=== PATIENT | female | born 1995 ===

== ENCOUNTER 2019-07-22 10:03 | Observation (INO) | payer OTHER ==
[2019-07-22] MEDS ORDERED: Ibuprofen 800 MG TAB ONE (10:27)
[2019-07-22] MEDS ORDERED: Acetaminophen 500 MG TAB ONE (10:27)
--- NOTE | 2019-07-22 11:02 | RAD ---
RADIOGRAPH CHEST 2 VIEWS: DATE: 07/22/2019 HISTORY: 24-year-old female with chest pain and cough FINDINGS: The lungs are clear. The cardiomediastinal silhouette and hilar shadows appear normal. There is no pl eural effusion or pneumothorax. No osseous abnormality is identified. IMPRESSION: Normal
[2019-07-22 12:35] LABS: Hemoglobin 14.5 g/dL (12.0-16.0); Mean Corpuscular HGB CONC 35.2 g/dL (32.0-36.0); Mean Corpuscular Hemoglobin 31.4 pg (27.0-31.0); Mean Corpuscular Volume 89.2 fL (78.0-98.0); Mean Platelet Volume 8.8 fL (7.4-10.4); Platelet Count 168 thou/uL (130-400); RBC Distribution Width 11.4 % (11.5-14.5); Red Blood Cell (RBC) Count 4.63 mill/uL (4.20-5.40); White Blood Cell (WBC) Count 16.8 thou/uL (4.8-10.8)
[2019-07-22 12:35] LABS: Bilirubin Negative (Negative); Blood, Urine Negative (Negative); Clarity Clear (Clear); Glucose, Urine (Dipstick) 50 mg/dL (Negative); Leukocyte Negative Leu/uL (Negative); Nitrite Negative (Negative); Protein, Urine (Dipstick) 20 mg/dL (Neg-Trace)
[2019-07-22 12:37] LABS: Pregnancy Test - Urine (BHCG) Negative (Negative); Pregu Control Background? CLEAR/WHITE (CLR/WHITE); Pregu Control Bar Appear? YES (CONTROL BAR); Specific Gravity 1.034 (1.002-1.036)
[2019-07-22 12:54] LABS: ALT (SGPT) 8 U/L (8-55); AST (SGOT) 11 U/L (5-34); Albumin 4.4 g/dL (3.5-5.0); Alkaline Phosphatase 73 U/L (40-110); Anion Gap 13 mmol/L (10-20); BUN (Urea Nitrogen) 16 mg/dL (7.0-18.7); Band 17 % (5-11); Bilirubin, Total 1.6 mg/dL (0.2-1.2); Calc. Creatinine Clearance 0 mL/min (70-130); Calcium 9.4 mg/dL (7.8-10.44); Carbon Dioxide 22 mmol/L (22-29); Chloride 103 mmol/L (98-107); Estimated GFR-MDRD 77; Globulin 2.6 g/dL (2.4-3.5); Glucose 155 mg/dL (70-105); Lymphocytes 1 % (21-51); MDiff Complete? YES; Metamyelocyte 1 % (0-0); Neutrophil 81 % (42-75); Platelet Morphology Comment Appears Adequate; Potassium 3.8 mmol/L (3.5-5.1); RBC Morphology Normal; Sodium 134 mmol/L (136-145)
[2019-07-22] MEDS ORDERED: Piperacillin/Tazobactam 3.375 GM VIAL ONE (13:10)
--- NOTE | 2019-07-22 14:11 | ULT ---
GALLBLADDER ULTRASOUND: HISTORY: Right upper quadrant abdominal pain FINDINGS: The liver demonstrates homogeneous echotexture without focal mass or intrahepatic biliary ductal dila tation. No gallstones, gallbladder wall thickening or pericholecystic fluid are seen. The pancreas is normal. There is trace right hydronephrosis. The common duct [id number] in diameter. No free fluid is seen in the Lewis's pouch. IMPRESSION: Trace right hydronephrosis, otherwise unremarkable exam
--- NOTE | 2019-07-22 15:52 | CT ---
CT ABDOMEN AND PELVIS WITHOUT CONTRAST: COMPARISON: None. HISTORY: Right flank pain. TECHNIQUE: Multiple contiguous axial images were obtained in a CT of the abdomen and pelvis without contrast. S agittal and coronal reformats were performed. FINDINGS: The liver, gallbladder, kidneys, adrenal glands, spleen, and pancreas are unremarkable, although eval uation is limited without IV contrast. No free air, free fluid, or stranding changes are seen in the abdomen or pelvis. The large and small bowel are unremarkable. The appendix is unremarkable. The reproductive organs are unremarkable. No abdominal or pelvic lymphadenopathy are seen. The visualized inferior thorax and abdominal wall s oft tissues are unremarkable. The bones are unremarkable. IMPRESSION: No evidence of acute intraabdominal/pelvic abnormality. POS: TPC
[2019-07-22] MEDS ORDERED: Ondansetron PF 4 MG/2 ML Vial IVP PRN ×2 (17:00→18:29)
[2019-07-22] MEDS ORDERED: Acetaminophen 325 MG TAB PO PRN (17:00)
[2019-07-22] MEDS ORDERED: Ondansetron ODT 4 MG TAB SL PRN (17:00)
[2019-07-22 17:17] VITALS: BMI 25.9
[2019-07-22] MEDS ORDERED: HYDROcodone/Acetaminophen 5/325 mg Tablet PO PRN (18:08)
[2019-07-22] MEDS ORDERED: Acetaminophen 500 MG TAB PO PRN (18:29)
[2019-07-22] MEDS ORDERED: Ondansetron ODT 4 MG TAB PO PRN (18:29)
[2019-07-22] MEDS ORDERED: Ketorolac Tromethamine 30 MG/ML VIAL IVP SCH (18:30)
[2019-07-22] MEDS ORDERED: cefTRIAXone\\ROCEPHIN 2 GM in Sodium Chloride 0.9% 100 ML IVPB SCH (18:30)
[2019-07-22] MEDS: Sodium Chloride 0.9% 1,000 ML IV SCH (20:18)
[2019-07-22] MEDS: Famotidine 20 MG TAB PO SCH (20:19)
[2019-07-22] MEDS ORDERED: AMPHETAMINE PO SCH (21:00)
[2019-07-22] MEDS ORDERED: DEXTROAMPHETAMINE PO SCH (21:00)
--- NOTE | 2019-07-22 23:49 | HP ---
PRIMARY CARE PROVIDER: [facility]. CHIEF COMPLAINT: Back pain and fever. HISTORY OF PRESENT ILLNESS: This is a 24-year-old female, who presents to [facility] Emergency Department complaining of back pain, fever, myalgias, and general weakness. The patient states the symptoms began approximately at 1 a.m. on 07/22/2019 after feeling completely normal up until this point. The patient denied any travel history, exposures, or family members with similar symptoms or recent vaccinations. The patient does state that she was prescribed Bactrim, which she took 1 dose at approximately 9:30 p.m. on 07/21/2019 after a concern for potential urinary tract infection. The patient also relates being treated for HPV in her perirectal area with topical solution approximately 1 week prior to this evaluation. The patient initially rated the back pain as 10/10 with some radiation to the upper and lower back. The patient denied any change to bowel habits or emesis. In the emergency room, the patient underwent general evaluation including chest imaging showing no acute infiltrate. The patient also underwent CT of the abdomen and pelvis showing no acute process. Abdominal ultrasound was also obtained showing trace right hydronephrosis, not appreciated on CT imaging. The patient was noted meeting SIRS criteria with low-grade fever, tachycardia and leukocytosis as well as lactic acidosis and placed on empiric Zosyn and intravenous normal saline x2 L. The patient was transferred to the observation unit for further evaluation. PAST MEDICAL HISTORY: Human papilloma virus, status post topical treatment. PAST SURGICAL HISTORY: Reviewed and negative. CURRENT MEDICATIONS: 1. Adderall XR 20 mg p.o. b.i.d. 2. Vyvanse 60 mg p.o. q.a.m. ALLERGIES: NO KNOWN DRUG ALLERGIES. FAMILY HISTORY: No inheritable diseases per patient report. SOCIAL HISTORY: Resides in the [facility]. Senior at [employer] and [employer] in [employer]. No current alcohol, tobacco, or illicit drug use. REVIEW OF SYSTEMS: CONSTITUTIONAL: Negative for weight loss or gain, ability to conduct usual activities. SKIN: Negative for rash, itching. EYES: Negative for double vision, pain. ENT/MOUTH: Negative for nose bleeding, neck stiffness, pain, tenderness. CARDIOVASCULAR: Negative for palpitations, dyspnea on exertion, orthopnea. RESPIRATORY: Negative for shortness of breath, wheezing, cough, hemoptysis, fever or night sweats. GASTROINTESTINAL: Negative for poor appetite, abdominal pain, heartburn, nausea, vomiting, constipation, or diarrhea. GENITOURINARY: Negative for urgency, frequency, dysuria, nocturia. MUSCULOSKELETAL: Negative for pain, swelling. NEUROLOGIC/PSYCHIATRIC: Negative for anxiety, depression. ALLERGY/IMMUNOLOGIC: Negative for skin rash, bleeding tendency. Otherwise negative except as stated per HPI. PHYSICAL EXAMINATION: VITAL SIGNS: On admission, blood pressure 132/95, pulse 125, respiratory rate 18, temperature 100.1 degrees Fahrenheit, O2 saturation 100% on room air. GENERAL APPEARANCE: This is a 24-year-old female, alert and oriented x3, pleasant, smiling, in no acute distress. HEENT: Pupils are equal, round, reactive to light and accommodation. Extraocular muscles are intact. No scleral icterus. No conjunctival injection. Nares patent. OP is clear. Teeth in good repair. NECK: Supple. No cervical adenopathy. No thyromegaly. No carotid bruits. No JVD appreciated. Cervical spine with full active and passive range of motion. No meningeal signs noted. CHEST: Lungs are clear to auscultation bilaterally. CARDIOVASCULAR EXAM: S1, S2 without noted murmur, rub, or gallop. Tachycardia noted. ABDOMEN: Rounded, soft, nontender, and nondistended. Bowel sounds are positive in all 4 quadrants. There is no hepatosplenomegaly. No abdominal bruits, no rebound or guarding appreciated. Mild CVA tenderness bilaterally. EXTREMITIES: Warm and dry with fair turgor. No clubbing, cyanosis, or asymmetric edema appreciated. Pulses are palpable distally at the dorsalis pedis, posterior tibial, and popliteal arteries bilaterally. Capillary refill less than 2 seconds. NEUROLOGIC: Cranial nerves 2 through 12 are grossly intact. No focal or lateralizing signs appreciated. SKIN: Per ER report showed multiple erythematous ulcers with granulation tissue in the gordo rectal region. Please see wound care photos. PERTINENT LABORATORY AND X-RAY FINDINGS: Sodium 134, potassium 3.8, chloride 103, CO2 of 22, BUN 16, creatinine 0.91, estimated GFR 77, glucose 155, calcium 9.4, lactic acid level ranged between 2.0 to 3.0, total bilirubin 1.6. TSH 1.12. CBC showed a white blood cell count of 16.8, hemoglobin 14.5, hematocrit 41.3, platelet count 168 with 81% neutrophils, 17% bandemia. Urinalysis positive for ketones and urobilinogen. Urine beta-HCG negative 07/22/2019. Influenza A and B antigen dated 07/22/2019 negative. IMAGIN. Portable chest x-ray dated 07/22/2019 showed no acute cardiopulmonary process. 2. Abdominal ultrasound dated 07/22/2019 showed questionable trace right hydronephrosis. 3. CT of the abdomen and pelvis dated 07/22/2019, showed no acute process. 4. EKG dated 07/22/2019 by my interpretation shows sinus tachycardia with heart rates in the low 110s. Normal R-wave progression noted in the precordial leads. Normal axis. No acute ST-T wave changes appreciated. ASSESSMENT/PLAN: 1. Systemic inflammatory response syndrome. The patient will be observed on the medical floor. Suspect secondary to urinary tract infection. Continue Rocephin 2 g IV q.24 hours. Await final blood and urine culture results. 2. Continue IV fluids with normal saline at 125 mL/hour. 3. Lactic acidosis, suspect secondarily to #1. 4. Continue serial monitoring and treatment as outlined in #1. 5. Neutrophilic leukocytosis. Continue treatment as outlined in #1. Repeat CBC in the a.m. 6. Human papilloma virus. Continue symptomatic and supportive management. Outpatient followup. 7. Prophylaxis. Sequential compression devices while in bed. Pepcid 20 mg p.o. b.i.d. CODE STATUS: Full. Surrogate medical decision maker is the patient's mother. Job ID: [id number]
[2019-07-23] MEDS: Ketorolac Tromethamine 30 MG/ML VIAL IVP SCH ×2 (00:24→06:07)
[2019-07-23] MEDS: Sodium Chloride 0.9% 1,000 ML IV SCH ×3 (04:45→11:31)
[2019-07-23] MEDS ORDERED: Aspirin/APAP/Caffeine Tab (Excedrin Migraine) PO PRN (05:28)
[2019-07-23 05:47] LABS: Band 10 % (5-11); Eosinophils 5 % (0-10); Hemoglobin 12.3 g/dL (12.0-16.0); Lymphocytes 7 % (21-51); MDiff Complete? YES; Mean Corpuscular HGB CONC 34.8 g/dL (32.0-36.0); Mean Corpuscular Hemoglobin 31.9 pg (27.0-31.0); Mean Corpuscular Volume 91.8 fL (78.0-98.0); Mean Platelet Volume 9.3 fL (7.4-10.4); Monocytes 1 % (0-10); Neutrophil 77 % (42-75); Platelet Count 133 thou/uL (130-400); Platelet Morphology Comment Appears Adequate; RBC Distribution Width 11.7 % (11.5-14.5); RBC Morphology Normal; Red Blood Cell (RBC) Count 3.85 mill/uL (4.20-5.40); White Blood Cell (WBC) Count 8.2 thou/uL (4.8-10.8)
[2019-07-23 06:01] LABS: Anion Gap 8 mmol/L (10-20); BUN (Urea Nitrogen) 12 mg/dL (7.0-18.7); Calc. Creatinine Clearance 123 mL/min (70-130); Carbon Dioxide 21 mmol/L (22-29); Chloride 113 mmol/L (98-107); Estimated GFR-MDRD Greater than 90; Glucose 101 mg/dL (70-105); Potassium 4.2 mmol/L (3.5-5.1); Sodium 138 mmol/L (136-145)
[2019-07-23 08:29] VITALS: BP 118/62; TEMP 98.2
[2019-07-23] MEDS ORDERED: Lisdexamfetamine Dimesylate [Vyvanse] 60 MG PO SCH (09:00)
--- NOTE | 2019-07-23 09:47 | PDOC.HOSPP ---
- Subjective Encounter Date: 07/23/19 Encounter Time: 11:00 Subjective: No further back pain this AM. Neck a bit sore from the ER bed last night. Tachycardia resolved. No dysuria. - Objective Vital Signs & Weight: Vital Signs (12 hours) Temp Pulse Resp BP Pulse Ox 07/23/19 07:25 98.2 F 97 16 118/62 100 07/23/19 04:35 98.6 F 105 H 18 106/59 L 100 07/22/19 23:27 99.5 F 107 H 16 95/50 L 100 Weight Weight 142 lb I&O: 07/22/19 07/23/19 07/24/19 06:59 06:59 07:59 Intake Total 2017 Output Total 350 Balance 1667 Result Diagrams: 07/23/19 05:01 07/23/19 05:01 Hospitalist ROS - Review of Systems Constitutional: denies: fever, chills Respiratory: denies: cough, shortness of breath Cardiovascular: denies: chest pain, palpitations, orthopnea Gastrointestinal: denies: nausea, vomiting, abdominal pain Genitourinary: denies: dysuria Musculoskeletal: denies: back pain - Medication Medications: Active Medications Generic Name Dose Route Start Last Admin Trade Name Freq PRN Reason Stop Dose Admin Acetaminophen/Aspirin/Caffeine 2 tab 07/23/19 05:28 07/23/19 05:35 Excedrin Migraine PO 2 tab Q8H PRN Administration Headache Famotidine 20 mg 07/22/19 21:00 07/22/19 20:19 Pepcid PO 20 mg BID ERIC Administration Sodium Chloride 1,000 mls @ 125 mls/hr 07/22/19 18:30 07/23/19 04:45 Normal Saline 0.9% IV 1,000 mls .Q8H ERIC Administration Ceftriaxone Sodium 2 gm/ 100 mls @ 200 mls/hr 07/22/19 18:30 07/22/19 20:28 Sodium Chloride IVPB 100 mls Q24HR ERIC Administration Ketorolac Tromethamine 30 mg 07/22/19 23:59 07/23/19 06:07 Toradol IVP 07/27/19 23:59 30 mg Q6HR ERIC Administration - Exam General Appearance: NAD, awake alert ENT: moist mucosa Heart: RRR, no murmur, no gallops, no rubs Respiratory: CTAB, no wheezes, no rales, no ronchi Gastrointestinal: soft, non-tender, non-distended, normal bowel sounds Extremities: no cyanosis, no clubbing Extremities - other findings: hands a feet a bit puffy from all the IV fluids, back Nontender, neck suppl Psychiatric: normal affect, normal behavior, A&O x 3 Hosp A/P (1) SIRS (systemic inflammatory response syndrome) Code(s): R65.10 - SIRS OF NON-INFECTIOUS ORIGIN W/O ACUTE ORGAN DYSFUNCTION Status: Resolved (2) Leukocytosis Code(s): D72.829 - ELEVATED WHITE BLOOD CELL COUNT, UNSPECIFIED Status: Resolved (3) Tachycardia Code(s): R00.0 - TACHYCARDIA, UNSPECIFIED Status: Resolved - Plan No UTI seen on UA. No PNA. No flu. Likely viral syndrome, but got a dose of Bactrim prior to admission so will cover with abx just in case partially treated infection. Needs repeat U/S abd as outpatient. Home today.
[2019-07-23] MEDS: Famotidine 20 MG TAB PO SCH (10:19)
--- NOTE | 2019-07-24 03:32 | DIS ---
DATE OF ADMISSION: 07/22/2019 DATE OF DISCHARGE: 07/23/2019 PRIMARY CARE PHYSICIAN: Out of town. REASON FOR ADMISSION: Systemic inflammatory response syndrome and persistent tachycardia. DISCHARGE DIAGNOSES: 1. Systemic inflammatory response syndrome, resolved. 2. Leukocytosis, resolved. 3. Tachycardia, resolved. 4. Lactic acidosis, resolved. 5. Chronic HPV, status post papilloma and burning. No infection. PROCEDURES: 1. Chest x-ray showing no evidence of acute cardiopulmonary process. 2. Right upper quadrant ultrasound showing trace right hydronephrosis, otherwise normal exam. 3. CT scan of the abdomen and pelvis without contrast showing no hydronephrosis. No evidence of acute intraabdominal or pelvic abnormality. 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 She had them burned off earlier this week, did have a little bit of drainage from them, so was prescribed Bactrim over the phone. She took one tablet that the day before yesterday and then yesterday, the patient started to have some upper back pain that was painful with deep breaths, some low-grade fevers, myalgias, generalized weakness. This progressed, moved into the low back and she had developed some nausea. She often gets nausea with Bactrim and so did not think much of that. The patient reports the pain got so severe that she went to the emergency room. There, she also started to have some neck pain, stiffness, from the ER gurney. She was noted to be tachycardic, had elevated lactic acid and elevated leukocytosis. She had workup done as above. Blood and urine cultures were drawn. Urinalysis was negative for infection. T-max was 100.1 in the emergency room and never went above that. She did get Zosyn and lots of fluids done in the emergency room and was put in observation overnight due to persistent tachycardia. She had some continued low back pain that resolved this morning and now, she is feeling much better. She is feeling a little bit puffy in her hands and feet, but did urinate after ambulating some this morning. No more back pain. Her neck is still a little bit stiff. No fevers. No nausea or vomiting. No further drainage from the HPV ulcer sites. The patient's leukocytosis is completely resolved and her symptoms are most consistent with a combination of a reaction to the Bactrim, which she has had before along with possibly a viral infection. Given her significant leukocytosis and the fact that she had the ulcers burned off and then responded to IV antibiotics in the emergency room, we will go ahead and continue her on some Omnicef at home; however, I do suspect this was viral in origin. She is not having any chest pain, coughing, wheezing, difficulty breathing, fever, abdominal pain, or other symptoms this morning and so, we are discharging her home. DISCHARGE MANAGEMENT: Discharged home. ACTIVITY: As tolerated. DIET: Regular diet. FOLLOWUP: The patient is to call to establish a primary care physician and follow up in 2 weeks. At that time, she has a repeat ultrasound to make sure that the trace right hydronephrosis was not persistent or worsening. I suspect it was not clinically significant given her normal CT scan as well at that time and lack of urinary symptoms. If she does have some persistent hydronephrosis, she can get a Urology referral at that time. DISCHARGE MEDICATIONS: 1. Cefdinir 300 mg twice a day for 7 days. 2. Acetaminophen as needed for fever or pain. 3. Continue Adderall XR 20 mg twice a day. 4. Vyvanse 60 mg in the morning. These are alternated depending on her work and school schedule. Job ID: [id number] [facility]
== END 2019-07-23 12:25 | disposition home or self-care (01) ==
LOC: ERS 10:03 → 2SW 15:56
PROVIDERS: ADMIT Internal Medicine; ATTEND Internal Medicine
DX: R65.10 Systemic inflammatory response syndrome (SIRS) of non-infectious origin without acute organ dysfunction (principal); D72.828 Other elevated white blood cell count; R00.0 Tachycardia, unspecified; E87.2 Acidosis; A63.0 Anogenital (venereal) warts; N13.30 Unspecified hydronephrosis; M54.9 Dorsalgia, unspecified; M79.10 Myalgia, unspecified site; Z79.2 Long term (current) use of antibiotics; Z79.899 Other long term (current) drug therapy
CPT/HCPCS: 36415; 71046; 74176; 76705; 80048; 80053; 81003; 81025; 83605; 84443; 85007; 85025; 85027; 85379; 87040; 87086; 87804; 93005; 96361; 96365; 96367; 96375; 96376; G0378; J0696; J1885; J2543; J3490; Q0162